=== PATIENT | male | born 1945 | race Caucasian/White ===

== ENCOUNTER → 2018-09-08 10:56 | Outpatient (CLI) | payer MEDICARE, OTHER ==
[2012-02-04 16:09] VITALS: BMI 28.7
[~2018-09-08 10:56] MED LIST: AMBIEN5 MG PO; CYCLOBENZAPRINE10 MG PO; EMLA CREAM 30 G30 G1 TOPICAL; FUROSEMIDE20 MG PO; LIDOCAINE 5 % O35 GM TOPICAL; PLAVIX75 MG PO
[2018-09-15 06:50] VITALS: BMI 25.7
== END | disposition home or self-care (01) ==
LOC: D.HCCARDIO 10:56
PROVIDERS: ATTEND Internal Medicine Cardiovascular Disease
DX: I20.9 Angina pectoris, unspecified (principal)

== ENCOUNTER 2018-09-15 06:01 | Outpatient (CLI) | payer MEDICARE, OTHER ==
[~2018-09-15] VITALS: Ht 188 cm; Wt 90.9 kg
--- NOTE | ~2018-09-15 | HEMODYNAMI ---
PATIENT:SCOT MOMIN MEDICAL RECORD: [id number] : 45 LOCATION:[facility] ADMISSION DATE: 09/15/18 Generatedon:09/15/20188:40 Patient name: SCOT MOMIN Patient #: [id number] : 1945 Date of study: 09/15/2018 Page: Of Hemodynamic Procedure Report Patient Data Patient Demographics Procedure consent was obtained First Name: SCOT Gender: Male Last Name: LILIANE : 1945 Middle Initial: W Age: 73 year(s) Patient #: [id number] Race: SSN: [id number] Additional ID: [id number] Contact details Address: [address] [place] [address] State: [place] City: [facility] Zip code: [address] Past Medical History Performed procedures and imaging results Date Procedure Procedure Results Comments 09/08/2018 Stress testing with Positive SPECT MPI Allergies Allergen Reaction Date Comments Reported Other allergy 09/15/2018 iodine Admission Admission Data Admission Date: 09/15/2018 Admission Time: 6:01 Arrival Date: 09/15/2018 Arrival Time: 0:00 Admit Source: Other Insurance Payor: Medicare, State-specific plan Height (in.): 74 BSA: 2.17 (m2) Height (cm.): 187.96 BMI: 25.47 (kg/m2) Weight (lbs.): 198.42 Weight (kg.): 90 Lab Results Lab Result Date: 09/15/2018 Lab Result Time: 6:40 Biochemistry Name Units Result Min Max BUN mg/dl 21 --(----)-* 7 18 Creatinine mg/dl 1 --(--*-)-- 0.6 1.3 CBC Name Units Result Min Max Hematocrit % 41.6 -*(----)-- 42 54 Hemoglobin g/dl 14.6 --(-*--)-- 13.5 17.5 Procedure Procedure Types Cath Procedure Diagnostic Procedure [facility] w/Coronaries Sedation Charges Moderate Sedation up to 30 minutes PCI Procedure Coronary Stent Coronary Stent Initial Procedure Description Procedure Date Procedure Date: 09/15/2018 Procedure Start Time: 8:09 Procedure End Time: 8:34 Procedure Staff Name Function Alfonzo Senior RT Scrub Elio Tong RN Nurse Dominik Oshea MD Performing Physician Harsha Faria RT Monitor Melany De Dios RT Scrub Procedure Data Cath Procedure Fluoroscopy Diagnostic fluoroscopy Total fluoroscopy Time: 4.2 time: 4.2 min min Diagnostic fluoroscopy Total fluoroscopy dose: 666 dose: 666 mGy mGy Contrast Material Contrast Material Type Amount (ml) Isovue 300 110 Entry Location Entry Primary Successful Side Size Upsize Upsize Entry Closure Succes sful Closure Location (Fr) 1 (Fr) 2 (Fr) Remarks Device Remarks Femoral Right 5 Fr 6 Fr Exoseal artery Short Estimated blood loss: 10 ml Diagnostic catheters Device Type Used For End Catheter Placement MULTIPACK JL 4.0 5Fr Procedure catheter MULTIPACK 3DRC 5Fr Procedure catheter MULTIPACK Pigtail 5 Fr Procedure catheter Procedure Complications No complications Procedure Medications Medication Administration Route Dosage Oxygen etCO2 Nasal cannula 2 l/min Lidocaine 2% added to field 20 Heparin Flush Bag added to field 2 bags (1000units/500ml NS) 0.9% NaCl I.V. 100 ml/hr Versed I.V. 1 mg Fentanyl I.V. 50 mcg Versed I.V. 1 mg Fentanyl I.V. 50 mcg Versed I.V. 1 mg Fentanyl I.V. 50 mcg Versed I.V. 1 mg Heparin Bolus I.V. 9000 units Plavix P.O. 600 mg Hemodynamics Rest BSA: 2.17 (m2) HGB: 14.6 (g/dl) O2 Consumption: Estimated: 262.63 (ml/min) O2 Co nsumption indexed: Estimated:121.03 (ml/min/m) Heart Rate: 85 (bpm) Pressure Samples Time Site Value (mmHg) Purpose Heart Use Rate(bpm) 8:17 LV 159/3,21 Snapshot 80 8:18 LV 166/1,31 Pullback 70 8:18 AO 157/82(114) Pullback 70 Gradients Valve Time Site 1 Site 2 Mean SEP/DFP Peak To Heart Use (mmHg) (sec/min) Peak Rate (mmHg) (bpm) Aortic 8:18 LV AO 7 21 9 70 166/1,31 157/82(114) Calculations Valve P-P Mean Valve Index Valve Source Name Gradient Area Flow (cm2) Aortic 9 7 9 7 Snapshots Pre Cath Intra NCS Post Cath Vital Signs Time Heart Resp SPO2 etCO2 NIBP (mmHg) Rhythm Pain Sedation Rate (ipm) (%) (mmHg) Status Level (bpm) 7:50:40 77 12 98 0 184/107(158) NSR 0 (11) 10(A) , No pain 7:55:02 71 18 96 0 169/95(138) NSR 0 (11) 10(A) , No pain 7:59:16 69 16 94 0 143/87(117) NSR 0 (11) 10(A) , No pain 8:03:32 69 16 92 0 147/90(116) NSR 0 (11) 10(A) , No pain 8:07:48 69 17 95 0 147/94(117) NSR 0 (11) 9(A) , No pain 8:12:06 69 18 94 0 151/88(126) NSR 0 (11) 9(A) , No pain 8:16:22 69 15 92 0 156/95(126) NSR 0 (11) 9(A) , No pain 8:20:36 69 16 95 0 157/94(127) NSR 0 (11) 9(A) , No pain 8:24:52 70 10 94 0 137/93(118) NSR 0 (11) 9(A) , No pain 8:29:08 69 10 98 0 147/82(106) NSR 0 (11) 9(A) , No pain 8:33:26 69 17 97 34.4 154/93(134) NSR 0 (11) 10(A) , No pain Medications Time Medication Route Dose Verified Delivered Reason Notes Effectiveness by by 7:52:56 Oxygen etCO2 2 Dominik Buffie used for Nasal l/min Bonilla Tong RN procedure cannula 7:53:03 Lidocaine 2% added 20ml Dominik Dominik for local to vial Bonilla Oshea MD anesthetic field 7:53:09 Heparin Flush added 2 Dominik Dominik used for Bag to bags Bonilla Oshea MD procedure (1000units/500ml field NS) 7:53:18 0.9% NaCl I.V. 100 Dominik Buffie Per physician ml/hr Bonilla Tong RN 7:57:48 Versed I.V. 1 mg Dominik Buffie for sedation Bonilla Tong RN 7:57:53 Fentanyl I.V. 50 Dominik Buffie for sedation mcg Bonilla Tong RN 8:02:35 Versed I.V. 1 mg Dominik Buffie for sedation Bonilla Tong RN 8:02:40 Fentanyl I.V. 50 Dominik Buffie for sedation mcg Bonilla Tong RN 8:09:54 Versed I.V. 1 mg Dominik Buffie for sedation Bonilla Tong RN 8:09:57 Fentanyl I.V. 50 Dominik Buffie for sedation mcg Bonilla Tong RN 8:21:29 Versed I.V. 1 mg Dominik Buffie for sedation Bonilla Tong RN 8:22:54 Heparin Bolus I.V. 9,000 Dominik Buffie for verifi ed units Bonilla Tong RN anticoagulation with dr oshea 8:37:14 Plavix P.O. 600 Dominik Buffie for mg Bonilla Tong RN antiplatelet therapy Procedure Log Time Note 7:35:09 Elio Tong RN sent for patient. Start room use. 7:35:51 Informed consent obtained and on chart 7:41:46 Admit Source: Other 7:42:34 Insurance Payor : State-specific plan, Medicare 7:43:30 Arrival Date: 09/15/2018 12:00:00 AM 7:43:50 Patient Weight : 198.42 lbs 7:43:53 Patient Height : 74 inches 7:49:07 Procedure Status Elective Heart Cath (OP). 7:49:14 Time tracking: Regular hours (M-F 7:00 - 5:00) 7:49:17 Plan of Care:Hemodynamics will remain stable., Cardiac rhythm will remain stable., Comfort level will be maintained., Respiratory function will remain adequate., Patient/ family verbilizes understanding of procedure., Procedure tolerated without complication., Recovers from procedure without complications.. 7:49:20 Patient received from Pre/Post Procedure Room to CCL 1 Alert and oriented. Tansferred to table in Supine position. 7:49:21 Warm blankets applied, and ngozi hugger turned on for patient comfort. 7:49:22 Correct patient and procedure confirmed by team. 7:49:23 Vital chart was started 7:49:23 ECG and BP/O2 sat monitors applied to patient. 7:49:24 Baseline sample Acquired. 7:49:28 Rhythm: sinus rhythm , paced 7:49:29 Full Disclosure recording started 7:49:36 H&P Date Dictated: 09/06/2018 Within 30 days and on chart., H&P Addendum completed by physician on day of procedure. (MUST COMPLETE FOR ALL OUTPATIENTS). 7:49:37 Pre-op teaching completed and patient verbalized understanding. 7:49:37 Pre-procedure instructions explained to patient. 7:49:39 Family in waiting room. 7:49:41 Patient NPO since Midnight. 7:49:53 Patient allergic to Other allergyiodine 7:49:54 Is the patient allergic to Iodine/contrast media? Yes. 7:49:56 Was the patient premedicated? Yes 7:49:57 Is patient on blood thinner?No 7:49:58 Patient diabetic? No. 7:50:02 Previous problem with sedation/anesthesia? No ? 7:50:03 Sleep apnea? Yes 7:50:03 Snore? Yes 7:50:05 Deviated septum? No 7:50:07 Sticks out tongue? Yes 7:50:07 Opens mouth fully? Yes 7:50:09 Airway obstruction? No ? 7:50:12 Dentures? Yes in tight 7:50:16 Pre procedure: right dorsailis pedis pulse 2+ Normal; easily identifiable; not easily obliterated 7:50:17 Modified Alber's test Ulnar < 7 seconds 7:50:20 Patient pain scale 0/10 ?. 7:50:26 IV patent on arrival in left forearm with 0.9% NaCl at KVO. 7:50:59 Lab Result : Hemoglobin 14.6 g/dl 7:50:59 Lab Result : Hematocrit 41.6 % 7:50:59 Lab Result : BUN 21 mg/dl 7:50:59 Lab Result : Creatinine 1 mg/dl 7:51:01 Lab results completed and on chart. 7:51:03 Right groin area was prepped with chlora-prep and draped in sterile fashion 7:51:04 Sharps counted by scrub and verified by R.N. 7:51:04 Alarms reviewed by R. N. 7:51:06 ACIST Syringe (92111) opened to sterile field. 7:51:06 Use device set Femoral Dx 7:51:07 Medline Cath Pack ([id number]) opened to sterile field. 7:51:07 Bag Decanter (2002S) opened to sterile field. 7:51:08 ACIST Manifold (23528) opened to sterile field. 7:51:08 ACIST Hand Control (93123) opened to sterile field. 7:51:09 Tegaderm 4 x 4 (1626W) opened to sterile field. 7:51:10 EMERALD Guide Wire (502-837) opened to sterile field. 7:51:11 SHEATH 5FR Harrah ([id number]) opened to sterile field. 7:51:12 DIAGNOSTIC Multipack 5Fr catheter set ([id number]) opened to sterile field. 7:51:17 --------ALL STOP TIME OUT------ 7:51:17 Physician arrived 7:51:18 Final Timeout: patient, procedure, and site verified with staff and physician. All members of the team are in agreement. 7:51:19 Right groin site verified by team. 7:51:21 Fire Safety Assessment: A--An alcohol-based skin anteseptic being used preoperatively., C--Open oxygen or nitrous oxide is being used., D--An ESU, laser, or fiber-optic light is being used. 7:51:24 Physical assessment completed. ASA score P 2 - A patient with mild systemic disease as per Dominik Oshea MD. 7:51:30 2) 60-89 Mildly reduced kidney function, and other findings (as for stage 1) point to kidney disease. 7:52:03 Maximum allowable contrast dose (3.7 X eGFR X 0.75)216 ml. 7:52:06 Sedation plan: IV Moderate Sedation Medication:Versed, Fentanyl 7:52:14 Baseline sample Acquired. 7:52:56 Oxygen 2 l/min etCO2 Nasal cannula was administered by Elio Tong RN; used for procedure; 7:53:03 Lidocaine 2% 20ml vial added to field was administered by Dominik Oshea MD; for local anesthetic; 7:53:09 Heparin Flush Bag (1000units/500ml NS) 2 bags added to field was administered by Dominik Oshea MD; used for procedure; 7:53:18 0.9% NaCl 100 ml/hr I.V. was administered by Elio Tong RN; Per physician; 7:57:48 Versed 1 mg I.V. was administered by Elio Tong RN; for sedation; 7:57:53 Fentanyl 50 mcg I.V. was administered by Elio Tong RN; for sedation; 8:02:35 Versed 1 mg I.V. was administered by Elio Tong RN; for sedation; 8:02:40 Fentanyl 50 mcg I.V. was administered by Elio Tong RN; for sedation; 8:08:52 Zero performed for pressure channel P1 8:08:57 Zero performed for pressure channel P1 8:09:38 Procedure started. 8:09:41 Local anesthetic to right femoral artery with Lidocaine 2% by Dominik Oshea MD.INITIAL ACCESS ONLY 8:09:46 A 5 Fr sheath was inserted into the Right Femoral artery 8:09:54 Versed 1 mg I.V. was administered by Elio Tong RN; for sedation; 8::57 Fentanyl 50 mcg I.V. was administered by Elio Tong RN; for sedation; 8:10:07 ACC Patient presents with Unstable Angina CCS Anginal Class 3--Marked limitation of physical activity, angina occurs with ordinary activity.. 8:10:32 ACCPatient has been prescribed/administered the following anti-anginal medication within the last 2 weeks: Beta Bailey, Calcium Channel Blockers 8:11:20 A MULTIPACK JL 4.0 5Fr catheter was advanced over the wire and used for Procedure. 8:12:18 LCA angiography performed. 8:13:35 Catheter exchanged over wire. 8:13:42 A MULTIPACK 3DRC 5Fr catheter was advanced over the wire and used for Procedure. 8:15:45 RCA angiography performed. 8:16:26 Catheter exchanged over wire. 8:16:32 A MULTIPACK Pigtail 5 Fr catheter was advanced over the wire and used for Procedure. 8:17:54 LV hemodynamics recorded. 8:17:55 LV gram done using LOZOYA 8:17:57 Injector settings: Ml/sec: 10, Volume: 20, 8:18:18 EF : 50 % 8:18:30 Catheter removed. 8:18:57 SHEATH 6FR Harrah ([id number]) opened to sterile field. 8:18:58 BMW 300cm [place] 2 J wire ([id number]) opened to sterile field. 8:18:58 TUBING High Pressure Extension Tubing (Bonilla) ([id number]) opened to sterile field. 8:18:59 GUIDE 6FR XBLAD 3.5 catheter ([id number]) opened to sterile field. 8:19:05 Sheath upsized to a 6 Fr Short. 8:19:11 6 Fr xblad 3.5 guide catheter was inserted over the wire 8:19:23 Pre PCI Site: [place] pLAD has 90% stenosis. 8:19:26 ACC Pre-intervention CELESTE Flow is 3. 8:21:29 Versed 1 mg I.V. was administered by Elio Tong RN; for sedation; 8:22:24 BMW wire advanced. 8:22:54 Heparin Bolus 9,000 units I.V. was administered by Elio Tong RN; for anticoagulation; verified with dr oshea 8:27:20 Wire advanced across lesion. 8:29:49 Place stent Inflation Number: 1 A COBRA RX 3.5 X 12 Stent was prepped and advanced across the Prox LAD 90. The stent was deployed at 14 CHERYLE for 0:10 (min:sec) 0. 8:30:40 Stent catheter was removed intact over wire. 8:30:42 Wire removed. 8:31:04 Guide catheter removed. 8:31:09 EXOSEAL 6Fr (EX600) opened to sterile field. 8:31:13 INFLATOR Merit BasixCompak (DR3177) opened to sterile field. 8:31:18 ACT drawn and resulted at 375 seconds. (normal therapeutic range 180-240 seconds). 8:31:19 Sheath removed intact; hemostasis achieved with Exoseal to the Right Femoral artery. 8:31:21 Procedure ended.(Physican Out) 8:31:35 Fluoroscopy time 04.20 minutes. 8::38 Fluoroscopy dose: 666 mGy 8:31:38 Flurop Dose total: 666 8:31:46 Dose Area Product 96749 mGy/cm. 8:31:49 Contrast amount:Isovue 300 110ml. 8:31:51 Maximum allowable dose exceeded? No. 8:31:52 Sharps counted by scrub and verified by R.N. 8:31:54 Insertion/operative site no bleeding no hematoma. 8:31:57 Post-op/insertion site Right Femoral artery dressed using a 4 x 4 and Tegaderm. 8:32:00 Post right femoral artery:stable, soft, clean and dry 8:32:02 Post Procedure Pulses reassessed and unchanged 8:32:04 Post-procedure physical assessment completed. ASA score P 2 - A patient with mild systemic disease as per Dominik Oshea MD. 8:32:06 Post procedure rhythm: unchanged. 8:32:08 Estimated blood loss: 10 ml 8:32:09 Post procedure instruction explained to patient.Patient verbalizes understanding. 8:32:10 Patient needs reinforcement of post procedure teaching. 8:32:23 Procedure type changed to Cath procedure, Diagnostic procedure, LHC, LHC w/Coronaries, Sedation Charges, Moderate Sedation up to 30 minutes, PCI procedure, Coronary Stent, Coronary Stent Initial 8:33:13 Post PCI Site: [place] pLAD has 0% stenosis. 8:33:19 ACC Post-intervention CELESTE Flow is 3. 8:33:39 ACCDominant side:Right 8:33:47 Procedure and supply charges have been captured, reviewed, submitted and are correct. 8:33:49 Procedure Complication : No complications 8:33:51 Vital chart was stopped 8:33:53 See physician's report for complete and final results. 8:33:55 Report given to Pre/Post Procedure Room. 8:33:57 Patient transfered to Pre/Post Procedure Room with Stretcher. 8:33:59 Full Disclosure recording stopped 8:33:59 Procedure ended. 8:34:11 ACC-PCI Only Patient was given prescriptions, or instructed by Dominik Oshea MD to start/continue the following medications upon discharge: Aspirin, Plavix 8:34:12 End room use (Document Last) 8:37:14 Plavix 600 mg P.O. was administered by Elio Tong RN; for antiplatelet therapy; Intervention Summary Intervention Notes Time ActionType Lesion and Equipment Action# Pressure Duration Attributes Used 8:29:[address] Place stent Prox LAD COBRA RX 1 14 00:10 3.5 X 12 Stent Device Usage Item Name Manufacture Quantity Catalog Hospital Part Current Minimal Lot# / Number Charge Number Stock Stock Serial# Code ACIST Syringe Acist 1 75993 358783 990021 789782 20 (48232) Medical Systems Inc Bag Decanter Microtek 1 2001S 874352 16192 806690 5 (2001S) Medical Inc. Medline Cath Medline 1 [id number] 693947 80303 842356 5 Pack ([id number]) ACIST Hand Acist 1 76937 717203 065327 382280 5 Control Medical (58298) Systems Inc ACIST Manifold Acist 1 15451 707626 787941 484528 5 (50521) Medical Systems Inc Tegaderm 4 x 4 3M 1 1626W 587126 254415 331612 5 (1626W) EMERALD Guide Cardinal 1 502-455 842417 366220 460775 5 Wire (502-455) Health SHEATH 5FR Terumo 1 TOJ405 445147 995405 068191 5 Harrah (FFX166) DIAGNOSTIC Cardinal 1 [id number] 322311 89658 615768 30 Multipack 5Fr Health catheter set (GA9749) MULTIPACK JL Cardinal 1 114504 5 4.0 5Fr Health catheter MULTIPACK 3DRC Cardinal 1 665225 5 5Fr catheter Health MULTIPACK Cardinal 1 288703 5 Pigtail 5 Fr Health catheter SHEATH 6FR Terumo 1 LTJ666 229867 047221 603312 40 Harrah (ZAC190) TUBING High Merit 1 [id number] 908538 66268 225348 10 Pressure Medical Extension Tubing (Oshea) ([id number]) BMW 300cm Cool 1 [id number] 860736 435231 879364 5 [place] 2 J Vascular wire (7183915T) GUIDE 6FR Cardinal 1 [id number] 118906 753848 220165 10 XBLAD 3.5 Health catheter (00767604) COBRA RX 3.5 X Celonova 1 039-17-56067 588530 [id number] 526474 3 [id number] 12 stent Biosciences ([id number]) EXOSEAL 6Fr Cardinal 1 EX600 041420 386881 128505 10 (EX600) Health INFLATOR Merit Merit 1 DX9628 446691 158737 115535 15 StyleFactoryBear [facility] HospitalTrademarkFly [facility] ([id number]) Signature Audit [place] Stage Time Signature Unsigned Intra-Procedure 09/15/2018 Harsha Faria RT(R) 8:38:44 AM RT(R) 09/15/2018 8:40:03 AM Intra-Procedure 09/15/2018 Harsha Faria 8:40:42 AM RT(R) Signatures Nurse : Elio Tong RN Signature : Date : Time : Performing Physician : Signature : Dominik Oshea MD Date : Time : Monitor : Harsha Faria RT Signature : Date : Time : [address] [address]
[2018-09-15] MEDS ORDERED: FUROSEMIDE20 MG PO (06:23)
[2018-09-15] MEDS ORDERED: AMBIEN5 MG PO (06:24)
[2018-09-15] MEDS ORDERED: EMLA CREAM 30 G30 G1 TOPICAL (06:24)
[2018-09-15] MEDS ORDERED: CYCLOBENZAPRINE10 MG PO (06:24)
[2018-09-15] MEDS ORDERED: LIDOCAINE 5 % O35 GM TOPICAL (06:25)
[2018-09-15 06:50] VITALS: BP 160/104; Ht 188 cm; Wt 90.9 kg
[2018-09-15 07:06] LABS: BASOPHILS 0.1 % (0-2); EOSINOPHILS 0.1 % (0-7); HEMATOCRIT 41.6 % (42.0-54.0); HEMOGLOBIN 14.6 g/dL (13.5-17.5); IMMATURE GRANULOCYTES 0.2 % (0-5); LYMPHOCYTES 10.5 % (15-50); MCH 31.7 pg (26.0-34.0); MCHC 35.1 g/dL (31.0-37.0); MCV 90.4 fL (80.0-100.0); MEAN PLATELET VOLUME 10.5 fL (7.4-10.4); MONOCYTES 1.9 % (2-11); NEUTROPHILS 87.2 % (40-80); PLATELET COUNT 176 10x3/uL (130-400); RDW 13.1 % (11.5-14.5); WBC 8.4 10x3/uL (4.8-10.8)
[2018-09-15 07:21] LABS: CHOL - HDL RATIO 2.6 ratio (2.3-4.9); LDL-HDL RATIO 1.5 ratio (1.5-3.5)
[2018-09-15 07:41] LABS: CALC OSMOLALITY 282 mosm/kg (275-300); CALCIUM 8.7 mg/dL (8.5-10.1); CARBON DIOXIDE 20.8 mmol/L (21.0-32.0); CHLORIDE - SERUM 105 mmol/L (98-107); GLUCOSE 137 mg/dL (74-106); POTASSIUM - SERUM 4.5 mmol/L (3.5-5.1); SODIUM 139 mmol/L (136-145); UREA NITROGEN 21 mg/dL (7-18); eGFR NON AFRICAN AMERICAN 78 mL/min (90-120)
--- NOTE | 2018-09-15 08:50 | NUR ---
PT RECEIVED VIA STRETCHER FROM [employer] FOR RECOVERY. PT AWAKE BUT DROWSY. PT DENIES PAIN OR DISCOMFORT. IV PATENT INFUSING VIA ORDERS. R GROIN W 6FR EXOCELE, DRESSING CDI NO BLEEDING OR SWELLING NOTED. LEG PINK AND WARM, PEDAL PULSES PALPABLE. HR PACED 70, BP 156/79, O2 SAT 97 ON 2L/NC. PT INSTRUCTED TO KEEP HEAD ON PILLOW AND LEG STRAIGHT, HE VERBALIZED UNDERSTANDING. AT BEDSIDE, CALL LIGHT IN REACH
[2018-09-15] MEDS ORDERED: PLAVIX75 MG PO (08:58)
--- NOTE | 2018-09-15 09:17 | NUR ---
4MG ZOPHRAN GIVEN PER ORDERS FOR NAUSEA. SIPS OF WATER GIVEN, PT STATES HE FEELS LIKE THERE IS A LOT OF SALT IN HIS MOUTH. R GROIN SOFT, DRESSING CDI NO BLEEDING OR SWELLING NOTED. CALL LIGHT IN REACH, AT BEDSIDE. VSS
--- NOTE | 2018-09-15 10:00 | NUR ---
PT RESTING QUIETLY, DENIES PAIN AND STATES NAUSEA IS MUCH BETTER. TOLERATING FLUIDS. VSS. R GROIN DRESSING CDI NO BLEEDING OR SWELLING NOTED. LEG PINK AND WARM, PEDAL PULSES PALPABLE. DR ALMONTE AT BEDSIDE, SPOKE TO PT AND REGARDING PROCEDURE RESULTS AND PLAN OF CARE. CALL LIGHT IN REACH
--- NOTE | 2018-09-15 10:33 | NUR ---
PT RESTING COMFORTABLY. R GROIN SOFT, NO BLEEDING OR HEMATOMA NOTED. HR 71, BP 134/79, 02 SAT 97. DENIES PAIN OR NAUSEA. REMAINS AT BEDSIDE. CALL LIGHT IN REACH
--- NOTE | 2018-09-15 11:00 | NUR ---
PT DOING WELL, DENIES PAIN OR NAUSEA. R GROIN REMAINS SOFT, DRESSING CDI NO BLEEDING OR HEMATOMA NOTED. HR 71, BP 121/70, 02 SAT 96. REMAINS AT BEDSIDE.
--- NOTE | 2018-09-15 11:35 | NUR ---
R GROIN SOFT, DRESSING CDI NO BLEEDING OR SWELLING NOTED. HOB ELEVATED SLIGHTLY. URINAL GIVEN BUT UNABLE TO VOID AT THIS TIME. SANDWICH TRAY SERVED. CALL LIGHT IN REACH. AT BEDSIDE. HR 76, BP 121/65, 02 SAT 95. DENIES PAIN OR ADD'L NEEDS
--- NOTE | 2018-09-15 12:10 | NUR ---
PT TOLERATED LUNCH W/O NAUSEA. R GROIN REMAINS SOFT, NO BLEEDING OR SWELLING NOTED. VSS.
--- NOTE | 2018-09-15 12:20 | NUR ---
DISCHARGE INSTRUCTIONS REVIEWED W PT AND , BOTH VERBALIZED UNDERSTANDING. IV REMOVED W CATH INTACT, MONITORS REMOVED AND PT UP TO DRESS. 300 CC CLEAR YELLOW URINE EMPTIED FROM URINAL.
--- NOTE | 2018-09-15 12:34 | NUR ---
PT DISCHARGED VIA WC TO PRIVATE VEHICLE WITH ALL BELONGINGS.
== END 2018-09-15 12:30 | disposition home or self-care (01) ==
LOC: D.CATH 06:01
PROVIDERS: ATTEND Internal Medicine Cardiovascular Disease
DX: I25.119 Atherosclerotic heart disease of native coronary artery with unspecified angina pectoris (principal); Z01.812 Encounter for preprocedural laboratory examination

== ENCOUNTER → 2019-06-06 07:45 | Outpatient (CLI) | payer MEDICARE, OTHER ==
[2018-09-15 06:50] VITALS: BMI 25.7
== END | disposition home or self-care (01) ==
LOC: D.HCCECHO 07:45
PROVIDERS: ATTEND Internal Medicine Cardiovascular Disease
DX: I10 Essential (primary) hypertension (principal)

== ENCOUNTER → 2019-06-21 09:14 | Outpatient (CLI) | payer MEDICARE, OTHER ==
[2018-09-15 06:50] VITALS: BMI 25.7
== END | disposition home or self-care (01) ==
LOC: D.HCCARDIO 09:14
PROVIDERS: ATTEND Internal Medicine Cardiovascular Disease
DX: R55 Syncope and collapse (principal)